=== PATIENT | male | born 1970 | race Two or more races ===

== ENCOUNTER 2024-08-29 07:31 | Emergency (ER) | payer OTHER ==
[~2024-08-29] VITALS: Ht 172.7 cm; Wt 64.9 kg
[2024-08-29] MEDS ORDERED: BUSPIRONE HCL7.5 MG (07:37)
[2024-08-29] MEDS ORDERED: SYNTHROID125 MCG PO (07:37)
[2024-08-29] MEDS ORDERED: TRAZODONE HCL150 MG (07:37)
[2024-08-29] MEDS ORDERED: 0.9 % SODIUM CHLORIDE 1,000 ML IV STA (08:32)
[2024-08-29] MEDS ORDERED: ONDANSETRON HCL 2 MG/ML VIAL IV STA (08:32)
[2024-08-29 08:58] LABS: HEMATOCRIT 37.2 % (39.0-48.0); HEMOGLOBIN 12.9 g/dL (13-16.00); MEAN CELL VOLUME 79.6 fL (80.0-100.00); MEAN CORPUSCULAR HEMOGLOBIN 27.6 pg (27.00-32.0); MEAN CORPUSCULAR HGB CONC 34.7 g/dl (32.0-36.0); PLATELET COUNT 225 K/uL (150-450); RED BLOOD COUNT 4.67 M/uL (4.00-6.00); RED CELL DISTRIBUTION WIDTH 13.9 % (11.5-14.5)
[2024-08-29 09:31] LABS: CALCIUM 9.6 mg/dL (8.5-10.1); CREATININE SERUM 1.01 mg/dL (0.70-1.30); GFR 77.27; POTASSIUM 4.17 mEq/L (3.5-5.1)
[2024-08-29 13:36] LABS: PH,URINE 6.5 (5.0-8.0); URINE APPEARANCE Clear; URINE BILIRRUBIN Negative (NEGATIVE); URINE BLOOD Negative; URINE COLOR Yellow; URINE GLUCOSE Negative (NEGATIVE); URINE LEUKOCYTE Trace; URINE NITRATE Negative; URINE PROTEIN Negative (NEGATIVE)
[2024-08-29 13:37] LABS: URINE BACTERIA 49.1 uL (0.0-1933); URINE EPITHELIAL CELLS 10.5 uL (0.0-38.8); URINE RBC 18.9 uL (0.0-20.8)
[2024-08-29 13:43] LABS: URINE CAST 1.22 uL (0.0-1.40); URINE KETONE 80 (NEGATIVE)
[2024-08-29 13:53] LABS: COCAINE POSITIVE (NEGATIVE); METHADONE NEGATIVE (NEGATIVE); OPIATES NEGATIVE (NEGATIVE); THC ( Cannabinoids) NEGATIVE (NEGATIVE)
== END 2024-08-29 14:07 | disposition home or self-care (01) ==
LOC: ER 07:33
PROVIDERS: Emergency Medicine
DX: R55 Syncope and collapse (principal); F32.9 Major depressive disorder, single episode, unspecified; E03.8 Other specified hypothyroidism